=== PATIENT | female | born 1950 | race Caucasian/White ===

== ENCOUNTER → 2016-07-29 | Outpatient (CLI) | payer OTHER | END | disposition home or self-care (01) | LOC: CFH 14:41 | PROVIDERS: ATTEND Family Medicine | DX: Z12.31 Encounter for screening mammogram for malignant neoplasm of breast (principal) | CPT/HCPCS: G0202 ==

== ENCOUNTER → 2017-03-09 | Outpatient (CLI) | payer OTHER | END | disposition home or self-care (01) | LOC: CARD 12:30 | PROVIDERS: ATTEND Psychiatry & Neurology Neurology | DX: G40.909 Epilepsy, unspecified, not intractable, without status epilepticus (principal) | CPT/HCPCS: 95819 ==

== ENCOUNTER → 2017-05-03 | Outpatient (CLI) | payer OTHER | END | disposition home or self-care (01) | LOC: CFH 14:39 | PROVIDERS: ATTEND Nurse Practitioner Family | DX: N63.20 Unspecified lump in the left breast, unspecified quadrant (principal); R92.8 Other abnormal and inconclusive findings on diagnostic imaging of breast | CPT/HCPCS: 76641; G0206 ==

== ENCOUNTER 2017-09-15 13:32 | Emergency (ER) | payer OTHER ==
[~2017-09-15] VITALS: Ht 154.9 cm; Wt 71.6 kg
[2017-09-15 16:50] VITALS: BP 135/65
== END 2017-09-15 16:52 | disposition home or self-care (01) ==
LOC: ED 16:12
DX: S62.330A Displaced fracture of neck of second metacarpal bone, right hand, initial encounter for closed fracture (principal); S62.332A Displaced fracture of neck of third metacarpal bone, right hand, initial encounter for closed fracture; S62.334A Displaced fracture of neck of fourth metacarpal bone, right hand, initial encounter for closed fracture; S62.336A Displaced fracture of neck of fifth metacarpal bone, right hand, initial encounter for closed fracture; Z79.82 Long term (current) use of aspirin; S00.531A Contusion of lip, initial encounter; Z86.73 Personal history of transient ischemic attack (TIA), and cerebral infarction without residual deficits; W01.0XXA Fall on same level from slipping, tripping and stumbling without subsequent striking against object, initial encounter; Y93.89 Activity, other specified; Y92.238 Other place in hospital as the place of occurrence of the external cause; Y99.8 Other external cause status
CPT/HCPCS: 29125; 70450; 99284

== ENCOUNTER → 2017-09-15 | Outpatient (CLI) | payer OTHER ==
[~2017-09-15] MED LIST: ASPI-515 PO; BIOT25005 PO; FERR325T18 PO; HYDR-3241 PO; IBUP200T64 PO; LAMO100T PO; LISI-170 PO; METF500T4 PO; NORT50CA PO; RANI300T PO; SIMV40TA3 PO
== END | disposition home or self-care (01) ==
LOC: PETCFH 09:30
PROVIDERS: ATTEND Physician Assistant Medical
DX: R11.10 Vomiting, unspecified (principal); R68.81 Early satiety
CPT/HCPCS: 78264; A9541

== ENCOUNTER 2017-09-18 14:57 | Inpatient (IN) | payer OTHER ==
[~2017-09-18] VITALS: Ht 154.9 cm; Wt 74.0 kg
[2017-09-18] MEDS ORDERED: BIOT25005 PO (15:16)
[2017-09-18] MEDS ORDERED: IBUP200T64 PO (15:16)
[2017-09-18] MEDS ORDERED: LAMO100T PO (15:16)
[2017-09-18] MEDS ORDERED: HYDR-3241 PO (15:16)
[2017-09-18] MEDS ORDERED: SIMV40TA3 PO (15:16)
[2017-09-18] MEDS ORDERED: LISI-170 PO (15:16)
[2017-09-18] MEDS ORDERED: ASPI-515 PO (15:16)
[2017-09-18] MEDS ORDERED: METF500T4 PO (15:16)
[2017-09-18] MEDS ORDERED: RANI300T PO (15:16)
[2017-09-18] MEDS ORDERED: NORT50CA PO (15:16)
[2017-09-18 15:35] LABS: BASOPHILS % (AUTO) 0 % (0-1); EOSINOPHILS # (AUTO) 0.04 x10^3/uL (0-0.4); EOSINOPHILS % (AUTO) 1 % (1-7); LYMPHOCYTES # (AUTO) 0.88 x10^3/uL (1-3.4); LYMPHOCYTES % (AUTO) 29 % (22-44); MD NO; MEAN CORPUSCULAR HEMOGLOBIN 27.6 pg (27.0-34.8); MEAN CORPUSCULAR HGB CONC 32.4 g/dL (32.4-35.8); MEAN CORPUSCULAR VOLUME 85.3 fL (80-100); MEAN PLATELET VOLUME 7.8 fL (7.4-10.4); MONOCYTES # (AUTO) 0.25 x10^3/uL (0.2-0.8); MONOCYTES % (AUTO) 8 % (2-9); NEUTROPHILS % (AUTO) 62 % (42-75); PLATELET COUNT 129 x10^3/uL (130-400); RED BLOOD COUNT 2.93 x10^6/uL (3.82-5.3); RED CELL DISTRIBUTION WIDTH 14.8 % (9.6-15.2)
[2017-09-18 15:40] LABS: INTERNATIONAL NORMALIZED RATIO 1.14 (0.93-1.1); PROTHROMBIN TIME 11.8 Seconds (9.6-11.5)
[2017-09-18] MEDS ORDERED: SODIUM CHLORIDE 0.9% 1,000ML IVBOLUS ONE (16:00)
[2017-09-18 16:24] LABS: ALBUMIN 1.7 g/dL (3.4-5.0); BILIRUBIN, DIRECT 0.1 mg/dL (0.1-0.2)
[2017-09-18 16:29] LABS: BILIRUBIN,INDIRECT 0.3 mg/dL (0.0-2.0); BILIRUBIN,TOTAL 0.4 mg/dL (0.2-1.0); TOTAL PROTEIN 3.9 g/dL (6.4-8.2)
[2017-09-18 16:30] LABS: MICROSCOPIC NOT IND
[2017-09-18 16:34] LABS: CULTURE INDICATED? NO
[2017-09-18] MEDS ORDERED: POLYETHYLENE GLYCOL 17 GM PACKET PO PRN (18:00)
[2017-09-18] MEDS ORDERED: BISACODYL 10 MG SUPP PR PRN (18:00)
[2017-09-18] MEDS ORDERED: ACETAMINOPHEN 325 MG TABLET PO PRN (18:00)
[2017-09-18] MEDS ORDERED: ONDANSETRON ODT 4 MG PO PRN (18:00)
[2017-09-18 18:33] LABS: FREE T4 (FREE THYROXINE) 0.82 ng/dL (0.76-1.46); THYROID STIMULATING HORMONE 0.797 mIU/L (0.358-3.740)
[2017-09-18 18:45] LABS: HEMOGLOBIN A1C 4.5 % (4.2-6.3)
[2017-09-18] MEDS: SODIUM CHLORIDE 0.9% 1,000 ML IV SCH (19:39)
[2017-09-18] MEDS ORDERED: SIMVASTATIN 40 MG TABLET PO SCH (21:00)
[2017-09-18] MEDS ORDERED: FAMOTIDINE 40 MG TABLET PO SCH (21:00)
[2017-09-18] MEDS ORDERED: NORTRIPTYLINE 25 MG CAPSULE PO SCH (21:00)
[2017-09-18] MEDS ORDERED: NORTRIPTYLINE 50 MG CAPSULE PO SCH (21:00)
[2017-09-18 22:30] VITALS: BP 122/70
[2017-09-19] VITALS (8 sets, daily range): BP systolic 94–142; BP diastolic 57–75
[2017-09-19] MEDS: metFORMIN 500 MG TABLET PO SCH ×2 (00:03→08:21)
[2017-09-19 05:26] LABS: BASOPHILS # (AUTO) 0.01 x10^3/uL (0-0.1); BASOPHILS % (AUTO) 0 % (0-1); EOSINOPHILS # (AUTO) 0.06 x10^3/uL (0-0.4); EOSINOPHILS % (AUTO) 2 % (1-7); LYMPHOCYTES # (AUTO) 1.21 x10^3/uL (1-3.4); LYMPHOCYTES % (AUTO) 35 % (22-44); MD NO; MEAN CORPUSCULAR HEMOGLOBIN 27.6 pg (27.0-34.8); MEAN CORPUSCULAR HGB CONC 32.3 g/dL (32.4-35.8); MEAN CORPUSCULAR VOLUME 85.6 fL (80-100); MEAN PLATELET VOLUME 7.8 fL (7.4-10.4); MONOCYTES # (AUTO) 0.32 x10^3/uL (0.2-0.8); MONOCYTES % (AUTO) 9 % (2-9); NEUTROPHILS # (AUTO) 1.83 x10^3/uL (1.8-6.8); NEUTROPHILS % (AUTO) 53 % (42-75); PLATELET COUNT 122 x10^3/uL (130-400); RED BLOOD COUNT 2.69 x10^6/uL (3.82-5.3); RED CELL DISTRIBUTION WIDTH 15.3 % (9.6-15.2)
[2017-09-19 05:36] LABS: CHLORIDE 111 mmol/L (98-107)
[2017-09-19 05:45] LABS: ALANINE AMINOTRANSFERASE 15 U/L (12-78); ALBUMIN 2.8 g/dL (3.4-5.0); ALKALINE PHOSPHATASE 95 U/L (45-117); ANION GAP 7 mmol/L (5-15); BILIRUBIN,TOTAL 0.3 mg/dL (0.2-1.0); CALCIUM 8.6 mg/dL (8.5-10.1); CREATININE 1.52 mg/dL (0.55-1.02); TOTAL PROTEIN 6.6 g/dL (6.4-8.2); TROPONIN I < 0.015 ng/mL (0.000-0.045)
[2017-09-19] MEDS: SODIUM CHLORIDE 0.9% 1,000 ML IV SCH (08:21)
[2017-09-19] MEDS ORDERED: LAMOTRIGINE 100 MG TABLET PO SCH (09:00)
[2017-09-19] MEDS ORDERED: LISINOPRIL 20 MG TABLET PO SCH (09:00)
[2017-09-19] MEDS ORDERED: SENNA/DOCUSATE TABLET PO SCH (09:00)
[2017-09-19] MEDS ORDERED: TEMPLATE NON-FORMULARY MED. (Biotin** 10,000 MG) PO SCH (09:00)
[2017-09-19 11:21] LABS: % IRON SATURATION 6 % (20-55); IRON LEVEL 23 mcg/dL (50-170); TOTAL IRON BINDING CAPACITY 383 mcg/dL (250-450); TROPONIN I < 0.015 ng/mL (0.000-0.045)
[2017-09-19] MEDS ORDERED: FERR325T18 PO (15:28)
== END 2017-09-19 17:57 | disposition home or self-care (01) | DRG 73 ==
LOC: ED 15:10 → EDIP 17:18 → 4EST 22:37
PROVIDERS: ADMIT Hospitalist; ATTEND Hospitalist
PROC: 0T9B70Z Drainage of Bladder with Drainage Device, Via Natural or Artificial Opening (ICD-10-PCS; principal; 2017-09-18)
DX: G90.8 Other disorders of autonomic nervous system (principal); E43 Unspecified severe protein-calorie malnutrition; E87.2 Acidosis; D69.6 Thrombocytopenia, unspecified; E11.51 Type 2 diabetes mellitus with diabetic peripheral angiopathy without gangrene; I95.9 Hypotension, unspecified; E11.43 Type 2 diabetes mellitus with diabetic autonomic (poly)neuropathy; I69.351 Hemiplegia and hemiparesis following cerebral infarction affecting right dominant side; K31.84 Gastroparesis; I65.22 Occlusion and stenosis of left carotid artery; D50.9 Iron deficiency anemia, unspecified; E78.5 Hyperlipidemia, unspecified; I10 Essential (primary) hypertension; Z66 Do not resuscitate; Z80.0 Family history of malignant neoplasm of digestive organs; Z80.8 Family history of malignant neoplasm of other organs or systems; Z82.49 Family history of ischemic heart disease and other diseases of the circulatory system; Z85.828 Personal history of other malignant neoplasm of skin; Z83.3 Family history of diabetes mellitus; Z87.891 Personal history of nicotine dependence; Z90.710 Acquired absence of both cervix and uterus; I69.320 Aphasia following cerebral infarction; I69.322 Dysarthria following cerebral infarction; D72.829 Elevated white blood cell count, unspecified; T38.3X5A Adverse effect of insulin and oral hypoglycemic [antidiabetic] drugs, initial encounter; Y92.89 Other specified places as the place of occurrence of the external cause; Z68.30 Body mass index [BMI] 30.0-30.9, adult
CPT/HCPCS: 36415; 70450; 70551; 71045; 80047; 80053; 80076; 80175; 81003; 82533; 82962; 83036; 83540; 83550; 83605; 84145; 84439; 84443; 84481; 84484; 85025; 85610; 85730; 87040; 93005; 93880; 96360; J7030

== ENCOUNTER → 2017-11-27 | Outpatient (CLI) | payer OTHER ==
[~2017-11-27] MED LIST changes: -METF500T4 PO; +METF500T5 PO
== END | disposition home or self-care (01) ==
LOC: CFH 13:53
PROVIDERS: ATTEND Family Medicine
DX: Z12.31 Encounter for screening mammogram for malignant neoplasm of breast (principal)
CPT/HCPCS: 77067

== ENCOUNTER → 2020-08-04 | Outpatient (CLI) | payer MEDICARE ==
[~2020-08-04] MED LIST changes: -ASPI-515 PO; +ASPI-963 PO; -LAMO100T PO; +LAMO100T8 PO; +METF500T17 PO; -METF500T5 PO; -NORT50CA PO; +NORT50CA52 PO; +SIMV40TA20 PO; -SIMV40TA3 PO
== END | disposition home or self-care (01) ==
LOC: CFH 12:40
PROVIDERS: ATTEND Internal Medicine Gastroenterology
DX: Z12.31 Encounter for screening mammogram for malignant neoplasm of breast (principal); R16.1 Splenomegaly, not elsewhere classified; G43.A0 Cyclical vomiting, in migraine, not intractable; K59.00 Constipation, unspecified; R52 Pain, unspecified; E11.9 Type 2 diabetes mellitus without complications; R47.01 Aphasia; I63.9 Cerebral infarction, unspecified; D69.6 Thrombocytopenia, unspecified; G40.909 Epilepsy, unspecified, not intractable, without status epilepticus; Z79.891 Long term (current) use of opiate analgesic
CPT/HCPCS: 76700; 77067